=== PATIENT | female | born 2000 | race Two or more races ===

== ENCOUNTER 2021-03-08 19:23 | Emergency (ER) | payer OTHER ==
[~2021-03-08] VITALS: Ht 165.1 cm; Wt 59.1 kg
[2021-03-08 19:45] VITALS: BP 130/87
[2021-03-08] MEDS ORDERED: NITROGLYCERIN SUBLINGUAL 0.4 MG BOTTLE OF 25. SL PRN (19:45)
[2021-03-08] MEDS ORDERED: ASPIRIN 325 MG TABLET PO ONE (20:00)
[2021-03-08 20:04] LABS: BILIRUBIN,URINE NEGATIVE (NEG); CLARITY,URINE CLEAR; COLOR,URINE YELLOW; NITRITE,URINE NEGATIVE (NEG); PH,URINE 6.5 (<5.0-8.0); PROTEIN,URINE NEGATIVE (NEG-TRACE); UROBILINOGEN,URINE 0.2 mg/dL (0.2 mg/dL)
--- NOTE | 2021-03-08 20:09 | PHYS DOC ---
General Adult EDM: Chief Complaint: CHEST PAIN HPI: HPI: Patient is a 20 year old female with no significant medical history presenting today complaining of a sharp 6 out of 10 intermittent right chest pain, symptoms have been going on for 2 months. Patient denies anything exacerbating or relieving her symptoms. She states today she was at work her vision became bloody and she became short of air. Denies having a syncope episode. Denies any cough, fever, congestion. Denies any chance she is . She states she has an Implanon Review of Systems: Review of Systems: Constitutional: Denies fever or chills. [] Eyes: Denies change in visual acuity. [] HENT: Denies nasal congestion or sore throat. [] Respiratory: Denies cough or shortness of breath. [] Cardiovascular: Reports right-sided chest pain GI: Denies abdominal pain, nausea, vomiting, bloody stools or diarrhea. [] : Denies dysuria. [] Musculoskeletal: Denies back pain or joint pain. [] Integument: Denies rash. [] Neurologic: Denies headache, focal weakness or sensory changes. [] Endocrine: Denies polyuria or polydipsia. [] Psychiatric: Denies depression or anxiety. [] Heart Score: C/O Chest Pain: Yes HEART Score for Chest Pain: HEART Score for Chest Pain Response (Comments) Value History Slighlty/Non-Suspicious 0 ECG Normal 0 Age < 45 0 Risk Factors No Risk Factors 0 Troponin < Normal Limit 0 Total 0 Risk Factors: Risk Factors: DM, Current or recent (<one month) smoker, HTN, HLP, family history of CAD, obesity. Risk Scores: Score 0 - 3: 2.5% MACE over next 6 weeks - Discharge Home Score 4 - 6: 20.3% MACE over next 6 weeks - Admit for Clinical Observation Score 7 - 10: 72.7% MACE over next 6 weeks - Early Invasive Strategies Current Medications: Current Medications Medications (Trade) Dose Ordered Sig/Angelika Start Time Stop Time Status Last Admin Dose Admin Aspirin (Hima Aspirin) 325 mg 1X ONCE 03/08/21 20:00 03/08/21 20:01 DC Nitroglycerin (Nitrostat) 0.4 mg PRN Q5MIN PRN 03/08/21 19:45 03/09/21 19:44 Allergies: Allergies: Allergies Coded Allergies Type Severity Reaction Last Updated Verified No Known Drug Allergies 03/08/21 No Physical Exam: PE: Constitutional: Well developed, well nourished, no acute distress, non-toxic appearance. [] HENT: Normocephalic, atraumatic, bilateral external ears normal, oropharynx moist, no oral exudates, nose normal. [] Eyes: PERRLA, EOMI, conjunctiva normal, no discharge. [] Neck: Normal range of motion, no tenderness, supple, no stridor. [] Cardiovascular:Heart rate regular rhythm, no murmur [] Lungs & Thorax: Bilateral breath sounds clear to auscultation [] Abdomen: Bowel sounds normal, soft, no tenderness, no masses, no pulsatile masses. [] Skin: Warm, dry, no erythema, no rash. [] Back: No tenderness, no CVA tenderness. [] Extremities: No tenderness, no cyanosis, no clubbing, ROM intact, no edema. [] Neurologic: Alert and oriented X 3, normal motor function, normal sensory function, no focal deficits noted. [] Psychologic: Affect normal, judgement normal, mood normal. [] Current Patient Data: Labs: Laboratory Tests Test 03/08/21 19:55 POC Urine HCG, Qualitative Hcg negative (Negative) EKG: EK Interpreted by Dr. Kim sinus rhythm heart rate 75 no STEMI [] Radiology/Procedures: Radiology/Procedures: []PROCEDURE: PORTABLE CHEST 1V XR CHEST 1V History: Chest pain Comparison: None. Technique: Portable AP radiograph of the chest. Findings: The lungs are adequately and symmetrically inflated. No focal airspace consolidation, pleural effusion or pneumothorax. The cardiomediastinal silhouette and pulmonary vasculature are within normal limits. Osseous structures and soft tissues are unremarkable. Impression: 1. No acute cardiopulmonary process. Electronically signed by: Yan Crook MD (03/08/2021 8:35 PM) [facility] DICTATED and SIGNED BY: YAN CROOK MD DATE: 03/08/[id number] 0 Course & Med Decision Making: Course & Med Decision Making Pertinent Labs and Imaging studies reviewed. (See chart for details) This is a 20-year-old female patient presenting to the ED today complaining of left-sided chest pain, symptoms began 2 months ago. Today she was at work and had blurry vision with shortness of breath and came to the ED to be evaluated. EKG is negative for STEMI, chest x-ray is negative for any acute findings. CBC with no acute findings, D-dimer is normal. CMP with no acute findings. Patient was discharged to home. Provided instructions to follow-up with her PCP as well as the provided toilet attendant. Isidra Disclaimer: Dragstephanie Disclaimer: This electronic medical record was generated, in whole or in part, using a voice recognition dictation system. Departure Departure Impression: Primary Impression: Chest pain Qualified Codes: R07.9 - Chest pain, unspecified Additional Impressions: Pre-syncope Shortness of breath Disposition: HOME / SELF CARE / HOMELESS Condition: STABLE Referrals: PAUL WALLACE MD follow up with your primary care doctor and the provided toilet attendant in one week Patient Instructions: Chest Pain (Nonspecific) Additional Instructions: You were evaluated in the emergency room for chest pain, your cardiac work-up is negative for any acute findings. Please follow-up with the provided toilet attendant as well as your primary care doctor in 1 week RAEANN KLEIN APRN Mar 08, 2021 20:08
[2021-03-08 20:10] LABS: BACTERIA,URINE 0 /HPF (0-FEW); RBC,URINE OCC /HPF (0-2)
[2021-03-08 20:12] LABS: AMPHETAMINE/METHAMPHETAMINE NEG (NEG); BARBITURATES NEG (NEG); BENZODIAZEPINES NEG (NEG); CANNABINOIDS NEG (NEG); COCAINE NEG (NEG); METHADONE NEG (NEG); OPIATES NEG (NEG); PHENCYCLIDINE NEG (NEG)
[2021-03-08 20:23] LABS: BASO # 0.1 x10^3/uL (0.0-0.2); BASO % 1 % (0-3); EOS # 0.4 x10^3/uL (0.0-0.7); EOS % 4 % (0-3); HEMATOCRIT 43.2 % (36.0-47.0); HEMOGLOBIN 14.7 g/dL (12.0-15.5); LYMPH # 3.9 x10^3/uL (1.0-4.8); LYMPH % 42 % (24-48); MEAN CORPUSCULAR HEMOGLOBIN 28 pg (25-35); MEAN CORPUSCULAR HGB CONC 34 g/dL (31-37); MEAN CORPUSCULAR VOLUME 84 fL (79-100); MONO # 0.6 x10^3/uL (0.0-1.1); MONO % 6 % (0-9); NEUT # 4.4 x10^3/uL (1.8-7.7); NEUT % 47 % (31-73); PLATELET COUNT 321 x10^3/uL (140-400); RED BLOOD COUNT 5.17 x10^6/uL (3.50-5.40); RED CELL DISTRIBUTION WIDTH 13.3 % (11.5-14.5); WHITE BLOOD COUNT 9.3 x10^3/uL (4.0-11.0)
[2021-03-08 20:33] LABS: CALCIUM 8.3 mg/dL (8.5-10.1); CREATININE 0.6 mg/dL (0.6-1.0); GFR 126.2; POTASSIUM 3.5 mmol/L (3.5-5.1)
--- NOTE | 2021-03-08 20:38 | RAD ---
XR CHEST 1V History: Chest pain Comparison: None. Technique: Portable AP radiograph of the chest. Findings: The lungs are adequately and symmetrically inflated. No focal airspace consolidation, pleural effusio n or pneumothorax. The cardiomediastinal silhouette and pulmonary vasculature are within normal limit s. Osseous structures and soft tissues are unremarkable. Impression: 1. No acute cardiopulmonary process. Electronically signed by: Yan Diaz MD (03/08/2021 8:35 PM) [facility]
[2021-03-08 20:40] LABS: ALBUMIN 3.9 g/dL (3.4-5.0); ALBUMIN/GLOBULIN RATIO 0.8 (1.0-1.7); TOTAL BILIRUBIN 0.2 mg/dL (0.2-1.0); TOTAL PROTEIN 8.5 g/dL (6.4-8.2)
--- NOTE | 2021-03-08 21:31 | EKG ---
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
== END 2021-03-08 22:50 | disposition home or self-care (01) ==
LOC: ER 19:23
DX: R07.89 Other chest pain (principal); R06.02 Shortness of breath; R55 Syncope and collapse
CPT/HCPCS: 36415; 71045; 80053; 80307; 81001; 81025; 83735; 83880; 84443; 84484; 85025; 85379; 93005; 99285-25

== ENCOUNTER 2021-05-06 13:01 | Emergency (ER) | payer OTHER ==
[~2021-05-06] VITALS: Ht 167.6 cm; Wt 64.8 kg
[2021-05-06 13:25] VITALS: BP 147/70
[2021-05-06] MEDS ORDERED: IBUPROFEN 100 MG/5 ML ORAL.SUSP. PO ONE (15:15)
[2021-05-06] MEDS ORDERED: ACETAMINOPHEN 160 MG/5 ML ORAL.SUSP. PO ONE (15:15)
[2021-05-06 15:30] LABS: BACTERIA,URINE 0 /HPF (0-FEW); RBC,URINE TNTC /HPF (0-2)
[2021-05-06 15:59] LABS: INFLUENZA A PATIENT NEGATIVE (NEGATIVE); INFLUENZA B PATIENT NEGATIVE (NEGATIVE)
[2021-05-06] MEDS ORDERED: AMOX500C PO (16:34)
--- NOTE | 2021-05-06 16:34 | PHYS DOC ---
Past Medical History Past Surgical History: No Surgical History Smoking Status: Never Smoker Alcohol Use: None General Adult EDM: Chief Complaint: GENERALIZED BODY ACHES HPI: HPI: Patient is a 20-year-old female presents to the emergency department complaining of sore throat generalized body aches and fever since approximately 5 AM this morning. Patient reports her fever was 102.5, took ibuprofen which helped. Patient states she has mild intermittent headaches, no cough, denies ear pain, denies chest or nasal congestion. Denies abdominal pain, nausea, vomiting, diarrhea, denies chest pains, denies shortness of breath. Patient denies increased urinary frequency, urinary pressure, urinary burning, hematuria or other dysuria, patient denies vaginal discharge, denies rashes to her vagina, denies STI concerns. Patient denies other physical complaints or physical concerns. Patient states she has not been vaccinated for the Covid 19 virus or flu virus this season. Review of Systems: Review of Systems: 14 body systems of review of systems have been reviewed. See HPI for pertinent positives and negative responses, otherwise all other systems are negative, nonpertinent or noncontributory. Constitutional: Negative except as outlined in HPI above. Skin: Negative except as outlined in HPI above. Eyes: Negative except as outlined in HPI above. HENT: Negative except as outlined in HPI above. Respiratory: Negative except as outlined in HPI above. Cardiovascular: Negative except as outlined in HPI above. GI: Negative except as outlined in HPI above. : Negative except as outlined in HPI above. Musculoskeletal: Negative except as outlined in HPI above. Integument: Negative except as outlined in HPI above. Neurologic: Negative except as outlined in HPI above. Endocrine: Negative except as outlined in HPI above. Lymphatic: Negative except as outlined in HPI above. Psychiatric: Negative except as outlined in HPI above. Heart Score: C/O Chest Pain: No Risk Factors: Risk Factors: DM, Current or recent (<one month) smoker, HTN, HLP, family history of CAD, obesity. Risk Scores: Score 0 - 3: 2.5% MACE over next 6 weeks - Discharge Home Score 4 - 6: 20.3% MACE over next 6 weeks - Admit for Clinical Observation Score 7 - 10: 72.7% MACE over next 6 weeks - Early Invasive Strategies Current Medications: Current Medications Medications (Trade) Dose Ordered Sig/Angelika Start Time Stop Time Status Last Admin Dose Admin Acetaminophen (Children'S Tylenol) 650 mg 1X ONCE 05/06/21 15:15 05/06/21 15:16 DC 05/06/21 15:15 650 MG Ibuprofen (Children'S Motrin) 600 mg 1X ONCE 05/06/21 15:15 05/06/21 15:16 DC 05/06/21 15:15 600 MG Allergies: Allergies: Allergies Coded Allergies Type Severity Reaction Last Updated Verified No Known Drug Allergies 03/08/21 No Physical Exam: PE: Constitutional: Well developed, well nourished, no acute distress, non-toxic appearance. 20-year-old female appears uncomfortable otherwise in no apparent distress. HENT: Normocephalic, atraumatic. Oropharynx moist, mild uvular edema without deviation, erythematous bilateral tonsils with cobblestoning and exudative d rainage, there is no laryngeal edema appreciated, patient is speaking in normal voice tones, there is no drooling, no trismus, no postnasal drip appreciated. Patient is speaking in normal voice tones. Bilateral nasal turbinates boggy. Bilateral TMs intact and within normal limits. Eyes: Conjunctiva normal, no discharge. Neck: Normal range of motion, no stridor. No meningismus signs, no nuchal rigidity. Cardiovascular: No cyanosis appreciated, distal cap refill less than 2 seconds. Lungs & Thorax: Patient is in no respiratory distress, no audible adventitious lung sounds appreciated. Abdomen: Nontender, no abnormalities noted. Skin: Warm, dry, no erythema, no rash. Back: No tenderness, no deformities. Extremities: No tenderness, no cyanosis, no clubbing, ROM intact, no edema. Neurologic: Alert and oriented X 3, normal motor function, normal sensory function, no focal deficits noted. Psychologic: Affect normal, judgement normal, mood normal. Current Patient Data: Labs: Laboratory Tests Test 05/06/21 13:45 05/06/21 14:44 05/06/21 15:19 Urine Color (Auto) Yellow Urine Turbidity Hazy Urine pH (Auto) 6.5 (<5.0-8.0) Urine Specific [place] 1.030 (1.000-1.030) Urine Protein (Auto) 30 mg/dL (Negative) Urine Glucose (Auto)(UA) Negative mg/dL (Negative) Urine Ketones (Auto) Negative mg/dL (Negative) Urine Blood (Auto) Large (Negative) Urine Nitrite Negative (Negative) Urine Bilirubin (Auto) Negative (Negative) Urine Urobilinogen (Auto) Normal mg/dL (Normal) Urine Leukocyte Esterase (Auto) Negative (Negative) Urine RBC Tntc /HPF (0-2) Urine WBC 1-4 /HPF (0-4) Urine Squamous Epithelial Cells Mod /LPF Urine Bacteria 0 /HPF (0-FEW) Urine Mucus Marked /LPF POC Urine HCG, Qualitative Hcg negative (Negative) Influenza Type A Antigen Negative (NEGATIVE) Influenza Type B Antigen Negative (NEGATIVE) SARS-CoV-2 Antigen (Rapid) Negative (NEGATIVE) Vital Signs: Vital Signs Date Time Temp Pulse Resp B/P (MAP) Pulse Ox O2 Delivery O2 Flow Rate FiO2 05/06/21 13:25 98.6 106 16 147/70 (95) 97 Room Air 98.6 EKG: EKG: [] Radiology/Procedures: Radiology/Procedures: [] Course & Med Decision Making: Course & Med Decision Making Pertinent Labs and Imaging studies reviewed. (See chart for details) 20-year-old female, vital signs reviewed, presents emergency department concerning sore throat and fever at home. Physical examination concerning for s trep pharyngitis, per patient's Centor score strep pharyngitis likely, will order flu and COVID-19 testing. Will give liquid Tylenol and Motrin suspension for sore throat. Patient's rapid flu and COVID-19 testing negative, will treat prophylactically with amoxicillin regimen per Centor score. Discussed findings with patient, antibiotic use, side effects, [id number] throat relief medications, return to ER precautions and concerns were reviewed, will give list of area healthcare providers to establish primary care with, patient gave verbal understanding of and is amenable to ED discharge planning. Patient is Amharic-speaking, used blue cloud administrator phone for all interactions with patient. [employer] Disclaimer: [employer] Disclaimer: This electronic medical record was generated, in whole or in part, using a voice recognition dictation system. Departure Departure Impression: Primary Impression: Pharyngitis Qualified Codes: J02.9 - Acute pharyngitis, unspecified Disposition: HOME / SELF CARE / HOMELESS Condition: GOOD Referrals: UNKNOWN PCP NAME (PCP) Patient Instructions: Strep Throat Additional Instructions: Lo vieron hoy en el departamento de emergencias por fiebre, dolor de cuerpo, dolor de garganta y dolor de angie. Swan prueba rpida de gripe, Covid y estreptococo dieron negativo. Sin embargo, con swan presentacin fsica, fiebre y amgdalas inflamadas, le estoy dando un antibitico. Por favor, tmelo daniel se indica hasta que se complete. Contine tomando Tylenol o Motrin de venta tomas para los lashay y molestias recurrentes. He proporcionado lorena lista de proveedores de atencin mdica del ryan para que pueda establecer atencin mdica primaria, elija lorena clnica o proveedor para establecer atencin primaria. Ivette por visitar nuestro Departamento de Emergencias. Fue un placer atenderlo hoy en el departamento de emergencias y le agradecemos que nos haya confiado swan atencin. Si surge algn problema adicional, no dude en volver a visitarnos. Leni un seguimiento con swan proveedor de atencin primaria para que puedan planificar atencin adicional si es necesario y conocer el problema que tuvo. Si los sntomas empeoran, regrese al Departamento de Emergencias. Cualquier sntoma preocupante que comience, daniel dolor en el pecho, falta de aire, debilidad o entumecimiento en un lado del cuerpo, fiebre karyn o cualquier otro sntoma preocupante, regresa a la jaime de emergencias. You are seen today in the emergency department for fevers, body aches, sore throat and headache. Your rapid flu, Covid, and strep test were negative. However with your physical presentation, fever and swollen tonsils, I am starting you on an antibiotic. Please take as directed until completed. Please continue to take [id number] Tylenol or Motrin for any returning aches and pains. I have provided a list of area healthcare providers for you to establish primary health care with, please choose a clinic or provider to establish primary care. Thank you for visiting our Emergency Department. It was a pleasure taking care of you today in the emergency department and we appreciate you trusting us with your care. If any additional problems come up don't hesitate to return to visit us. Please follow up with your primary care provider so they can plan additional care if needed and know about the problem that you had. If symptoms worsen come back to the Emergency Department. Any concerning symptoms that start such as chest pain, shortness of air, weakness or numbness on one side of the body, running high fevers or any other concerning symptoms return to the ER. Scripts Amoxicillin (AMOXICILLIN) 500 Mg Capsule 1 CAP PO BID for throat infection, #20 CAP 0 Refills Prov: DANIELLE VICENTE APRN 05/06/21 DANIELLE VICENTE APRN May 06, 2021 16:34
== END 2021-05-06 16:39 | disposition home or self-care (01) ==
LOC: ER 13:01
DX: J02.9 Acute pharyngitis, unspecified (principal); Z20.822 Contact with and (suspected) exposure to COVID-19; M79.10 Myalgia, unspecified site; R50.9 Fever, unspecified
CPT/HCPCS: 81001; 81025; 87070; 87428; 87880; 99283